=== PATIENT | male | born 1970 | race Caucasian/White ===

== ENCOUNTER 2020-07-06 13:39 | Outpatient (CLI) | payer OTHER ==
--- NOTE | 2020-07-06 16:38 | MRI Report ---
PROCEDURE: Lower Leg (Tib-Fib) RT W/O INDICATIONS: RIGHT ANKLE PAIN TECHNIQUE: Noncontrast coronal and sagittal T1 spin echo and STIR; axial T1 spin echo and T2 fast spin echo with fat saturation through the right lower leg. COMPARISON: None. FINDINGS: Image quality: Excellent. Bones: The visualized bone marrow demonstrates normal signal on all sequences. The overlying cortex appears intact. No fractures lines or intra-osseous lesions. Mild tricompartmental osteoarthritis i n right knee is seen. Mild tibiotalar joint space narrowing is also noted. Soft tissues: There is soft tissue edema and swelling along lateral aspect of ankle joint. The scann ed muscles demonstrate normal overall bulk and internal signal. Medial ankle ligaments are grossly in tact. There is suggestion of ruptured anterior talofibular ligament. Calcaneofibular ligament and pos terior talofibular ligament are grossly intact. Achilles tendon is intact. Extensor, flexor, and michelle neus tendons are within normal limits. Plantar fascia is intact. IMPRESSION: 1. Suggestion of ruptured anterior talofibular ligament and moderate amount of tibiotalar joint effus ion. Soft tissue swelling and edema along lateral aspect of ankle joint. 2. No gross ankle tendon pathology. 3. No marrow edema. No fracture or dislocation. Mild tricompartmental osteoarthritis in right knee an d mild tibiotalar joint osteoarthritis. Reviewed by: Shabbir Nolen MD on 07/06/2020 4:37 PM PDT Approved by: Shabbir Nolen MD on 07/06/2020 4:37 PM PDT Station ID: [id number]
== END 2020-07-06 13:40 | disposition home or self-care (01) ==
LOC: DI 13:39
PROVIDERS: ATTEND General Practice
DX: M17.11 Unilateral primary osteoarthritis, right knee (principal); M19.071 Primary osteoarthritis, right ankle and foot; M24.271 Disorder of ligament, right ankle

== ENCOUNTER 2023-10-31 08:30 | Outpatient (CLI) | payer OTHER | END 2023-10-31 08:31 | disposition home or self-care (01) | LOC: LAB.N 08:30 | PROVIDERS: ATTEND Physician Assistant Medical | DX: J02.9 Acute pharyngitis, unspecified (principal) | CPT/HCPCS: 87070 ==